=== PATIENT | male | born 1990 | race Caucasian/White ===

== ENCOUNTER 2024-08-09 21:07 | Emergency (ER) | payer OTHER ==
[2024-08-09 21:22] VITALS: BP 128/93; PULSE 90; RESP 15; TEMP 97.3; BMI 31.9
== END 2024-08-09 21:55 | disposition home or self-care (01) ==
LOC: FER 21:07
DX: S86.892A Other injury of other muscle(s) and tendon(s) at lower leg level, left leg, initial encounter (principal); X50.1XXA Overexertion from prolonged static or awkward postures, initial encounter
CPT/HCPCS: 73590-TC-LT-FY; 73590-TC-RT-FY; 99283-25